=== PATIENT | female | born 1975 | race Caucasian/White ===

== ENCOUNTER 2022-08-11 14:02 | Outpatient (CLI) | payer OTHER, SELFPAY ==
--- NOTE | ~2022-08-11 | XR_ITS ---
EXAMINATION: XR thoracic spine 3V, XR lumbar spine 2-3V DATE: 08/11/2022 14:23 INDICATION: 2 days of mid to lower back pain TECHNIQUE: 1. One AP, lateral and lateral swimmer's views of the thoracic spine were obtained. 2. AP, lateral and coned-down lateral lumbosacral views of the lumbar spine were obtained. COMPARISON: None. FINDINGS: Thoracic spine: Mild thoracic kyphosis. Vertebral body heights are normal. Mild disc height loss at a few levels in t he mid to lower thoracic spine. Visualized portions of the lungs are clear with no pleural effusion o r pneumothorax. Heart size is normal. Adjustable gastric banding procedure with normal phi angle of 4 3 degrees and with reservoir in the anteriorly projecting over the right upper quadrant. Lumbar spine: Alignment is normal. Vertebral body and disc heights are normal. Sacral arches are intact. Mild bilat eral sacroiliac osteoarthritis. Mild facet osteoarthritis in lower lumbar spine. T-shaped IUD project s in expected position over the central pelvis. IMPRESSION: 1. Mild thoracic spondylosis. No acute osseous abnormality. 2. Normal lumbar spine. 3. In expected appearance of an IUD and an adjustable gastric band Reviewed, dictated and finalized at location A. IMPRESSION: 1. Mild thoracic spondylosis. No acute osseous abnormality. 2. Normal lumbar spine. 3. In expected appearance of an IUD and an adjustable gastric band
== END 2022-08-11 14:03 ==
PROVIDERS: PCP Family Medicine; Visit Provider Nurse Practitioner Family
DX: M54.16 Radiculopathy, lumbar region (principal); M47.894 Other spondylosis, thoracic region
CPT/HCPCS: 72072; 72100

== ENCOUNTER 2023-07-31 06:33 | Outpatient (CLI) | payer OTHER, SELFPAY ==
--- NOTE | ~2023-07-31 | MR_ITS ---
MRI of the lumbar spine Clinical History: Radiculopathy Technique: Axial T2-weighted images, and sagittal T1-weighted, T2-weighted, and T2 fat-sat images wer e acquired. Findings: There is no fracture or subluxation of the lumbar spine. Vertebral bodies maintain normal h eight and alignment. No bone marrow signal abnormality seen. At L1-L2, L2-L3, L3-L4, intervertebral discs maintain normal signal and position. There are minimal f acet joint hypertrophic changes at these levels. No spinal canal stenosis or neural foraminal narrowi ng at these levels. At L4-L5, there is minimal disc desiccation with minimal disc bulge. There is moderate facet arthropa thy. No central canal stenosis. Probable mild right neural foraminal narrowing. Left neural foramen p reserved. At L5-S1, there is no disc bulge or herniation. There is moderate facet arthropathy. No central canal stenosis or neural foraminal narrowing. Paravertebral soft tissues are unremarkable. Impression: Minimal degenerative spondylosis, as above. Reviewed, dictated and finalized at location . Impression: Minimal degenerative spondylosis, as above.
== END 2023-07-31 06:34 | disposition home or self-care (01) ==
PROVIDERS: PCP Family Medicine; Visit Provider Nurse Practitioner Family
DX: M54.16 Radiculopathy, lumbar region (principal); M54.30 Sciatica, unspecified side
CPT/HCPCS: 72148

== ENCOUNTER 2023-11-03 08:33 | Outpatient (CLI) | payer OTHER, SELFPAY ==
--- NOTE | ~2023-11-03 | XR_ITS ---
XR hip BI 2V w AP pelvis 11/03/2023 08:56 INDICATION: Right hip pain and SI joint pain for 2 years PROCEDURE: AP pelvis and 2 views each hip COMPARISON: No prior studies for comparison. FINDINGS: Fracture, dislocation or subluxation is not identified. Pelvic rings are intact. Sacroiliac joints are symmetric. The soft tissues appear within normal limits. No foreign bodies are identifie d. There is an IUD present in the pelvis. IMPRESSION: 1: No significant bone or joint abnormality. Reviewed, dictated and finalized at location B.
== END 2023-11-03 08:34 ==
PROVIDERS: PCP Anesthesiology Pain Medicine; Visit Provider Anesthesiology Pain Medicine
DX: M25.551 Pain in right hip (principal); M53.3 Sacrococcygeal disorders, not elsewhere classified
CPT/HCPCS: 73521

== ENCOUNTER 2023-11-10 09:13 | Day surgery (SDC) | payer OTHER, SELFPAY ==
[2023-11-03 14:31] VITALS: BMI 31.4
--- NOTE | ~2023-11-10 | XR_ITS ---
EXAMINATION: XR fluoroscopy no charge DATE: 11/10/2023 11:00 CDT INDICATION: JESUSITA SI JT INJ . TECHNIQUE: 7 fluoroscopic images of the SI joints were obtained during bilateral SI joint injection, performed by Otto Loya MD. I was not present during the procedure. Fluoroscopy exposure time w as 9.8 seconds. Air Kerma 2.67 mGy. COMPARISON: None FINDINGS/IMPRESSION: Fluoroscopic documentation of bilateral SI joint injection. Please refer to the operative note for co mplete procedural details . Reviewed, dictated and finalized at location K.
--- NOTE | 2023-11-10 05:46 | WPDHPUPDATE1 ---
History and Physical Update Update Date/Time: 11/10/23 05:46 History and Physical has been reviewed, including an updated exam of the patient. There are NO changes in the patient's condition. Risks, benefits, and alternatives have been discussed and questions answered. Patient agrees to proceed with procedure.
--- NOTE | 2023-11-10 05:47 | W.PM.PROC2 ---
Procedure Note - Detailed Date of Procedure 11/10/23 Pre-op Diagnosis Bilateral Sacroiliitis, Chronic dorsalgia Post-op Diagnosis Same Procedure Performed Bilateral Sacroiliac Joint Steroid Injection under Fluoroscopic Guidance and with Contrast Control. Surgeon Otto Loya MD Anesthesia Local Description of Procedure INFORMED CONSENT: Risks, benefits and alternatives to the procedure were discussed in detail with the patient who expressed explicit understanding and consent to proceed. Patient was informed verbally and in written form regarding the risks associated with the procedure including the low risk of serious infection, bleeding/bruising, allergic reaction, nerve or organ injury, paralysis, procedural site pain or discomfort, worsening pain and/or mobility, failure to treat and/or disfigurement. The patient expressed explicit understanding and consent to proceed. All materials required for the procedure were available prior to procedure start. Site and side were marked prior to procedure and confirmed in the presence of the patient. PROCEDURE IN DETAIL: The patient was brought to the procedural suite and placed in the prone position. Patient was made comfortable with use of pillows under the head/chest, hips and ankles. Skin overlying the injection site on the affected side(s) was prepared broadly with ChloraPrep applicator and draped in a sterile manner. Aseptic technique was used throughout. The SI joint was identified in the AP view and contralateral oblique angulation with caudal tilt was utilized to optimize visualization of the inferior and medial joint line representing the posterior portion of the joint. Local anesthesia was established by infiltration with approximately 5 mL of 2% lidocaine via a 1-1/2 inch 27-gauge needle. A 22-gauge 3.5 inch Quincke spinal needle was advanced until the needle entered the inferior third of the joint space approximately 1cm cephalad from its most inferior point. In the AP view, 0.5 mL of Omnipaque 300 contrast medium was injected after negative aspiration for CSF, blood or other bodily fluid, showing appropriate intra-articular spread of contrast without evidence of intravascular, perineural or intrathecal placement. A 1.5 mL solution containing 3 mg of betamethasone in 0.5% PF bupivacaine was injected after repeat negative aspiration. Appropriate spread of the injectate was confirmed with washout of previous injected contrast. No parasthesias were elicited. Needle was removed completely intact without difficulty. The same exact procedure was repeated for all remaining levels on the contralateral side, left SI joint, modified as necessary to accommodate for the new target location with identical findings/results and no evidence of complication. Images were saved and documented in the patient chart. Patient's skin was cleansed and sterile bandage applied. The patient tolerated the procedure well. The patient was transported to the recovery area in stable condition where they were observed for an appropriate amount of time prior to discharge, without evidence of complication. The patient was instructed to avoid excessive activity for the next 48 hours, including climbing and frequent use of stairs. Showers only for 48 hours. They were instructed not to drive or operate heavy machinery for 24 hours. They are to monitor for severe headaches, fevers, chills, night sweats, erythema/swelling at the site or any other signs of infection, bleeding/bruising, bowel or bladder changes as well as new pain, weakness or numbness in the upper or lower extremity. Should they notice these changes, they are instructed to call our office immediately or report directly to the nearest Emergency Department if no answer or if after posted office hours. COMPLICATIONS: None COMMENTS: None CONTRAST WASTED: 29mL Omnipaque 300. Complications No immediate complications Condition Stable Disposition Same day [facility] Billing S
[2023-11-10 10:10] VITALS: BMI 31.3
[2023-11-10 10:13] VITALS: BP 110/85; PULSE 87; RESP 16; TEMP 36.6; O2SAT 100
[2023-11-10] MEDS: LIDOCAINE HCL 1% PF INJ 5 ML VIAL 4 ML INFILTRATE (11:08)
[2023-11-10 11:09] VITALS: BP 109/54; PULSE 78; RESP 16; O2SAT 99
[2023-11-10 11:11] VITALS: BP 103/59; PULSE 77; RESP 16; O2SAT 99
[2023-11-10] MEDS: BUPivacaine HCL 0.5% 10 ML AMP 2 ML INFILTRATE (11:13)
[2023-11-10] MEDS: BETAMETHASONE SODIUM PHOSPHATE PF INJ 6 MG/ML VIAL INFILTRATE (11:13)
[2023-11-10 11:18] VITALS: BP 109/76; PULSE 78; RESP 16; O2SAT 100
== END 2023-11-10 11:30 | disposition home or self-care (01) ==
PROVIDERS: PCP Family Medicine; Visit Provider Anesthesiology Pain Medicine
PROC: (CPT 27096; principal; 2023-11-10 10:45)
DX: M46.1 Sacroiliitis, not elsewhere classified (principal); M54.89 Other dorsalgia
CPT/HCPCS: 27096 ×2; 99199; G0260

== ENCOUNTER 2024-01-15 12:30 | Outpatient (RCR) | payer OTHER, SELFPAY ==
--- NOTE | 2023-12-24 14:03 | PTOPEVAL1 ---
Assessment and note entered by Justin Perdomo Evaluation Information Assessment Status Evaluation ICD-10 Condition Codes (PT) M54.16 Onset 04/24/23 Subjective Information Pt. reports that back pain started about 9 month ago. She states that she has hx of on/off back pain. She describes her pain across the low back, but most pain is on the right. She states that she had recent injection into the SI joint, which has helped to relieve her pain. She reports injection took place of 11/10/23. 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 She reports that standing and sitting for too long will increase her pain. She does notice since her injection the pain has become more bearable. She states that prior to her pain, she was doing regular exercise, but has been unable to exercise over the past year due to pain increase. She reports that her goal is to decrease her pain and return to regular exercise. Reported Pain Level Pain Score 2: Self Report Assessment PT Clinical Summary Pt. is a 48 year old female who enters the clinic with lumbar radiculopathy. Pt. has had poor exercise tolerance in recent hx, and note difficulty with lumbar movements in standing. Pt. also presents with increased pain at the lateral right hip in the FADIR and ELIZABET positions indicating possibility of interarticular hip pathology. Given increase in pain with WB activities, recommend an aquatic environment for skilled PT. she currently presents with impaired abdominal strength, impaired flexibility, impaired l.e. strength, mild gait impairments and pain. Continued skilled PT is indicated in order to improve these areas to allow for improve IADL tolerance. Plan of Care Interventions Aquatic Therapy,Electrical Stimulation,Gait Training,Hot Pack/Cold Pack,Manual Therapy,Neuro Re-education,Patient/Caregiver Educati,Therapeutic Activities,Therapeutic Exercise PT Services Indicated Yes Treatment Frequency and 2x/week x 8 visits Duration These treatments will address the objective and functional deficits as defined above. The patient will be advanced safely and appropriately in order for the patient to progress towards his/her prior level of function. Additional exercises will be introduced and as well as a comprehensive home exercise program upon discharge, if needed, ?to ensure carryover of functional gains achieved in the clinic. This treatment plan has been reviewed and agreement upon by the patient.
--- NOTE | 2023-12-24 14:03 | OPREHPOC ---
Outpatient Therapy Plan of Care This is a Multidisciplinary Plan of Care that may contain components documented by all disciplines (PT, OT, and ST.) PT Problem 1 PT Problem #1 Knowledge Deficit PT Goal 1 Goal / Goal Update Pt. will be independent with a HEP addressing core strength and trunk mobility. Target Visit 2 PT Problem 2 PT Problem #2 Pain PT Goal 1 Goal / Goal Update Pt. will provide reports of reduction in pain levels to 2/10 at worst with prolonged sitting and standing. Target Visit 8 PT Problem 3 PT Problem #3 Impaired Functional Mobil PT Goal 1 Goal / Goal Update Pt. will be able to safely lift 10-20# object from floor to waist with safe mechanics for 10 reps Pt. will present with less than 30% limitation on the Oswestry. Target Visit 8 PT Problem 4 PT Problem #4 Impaired Strength PT Goal 1 Goal / Goal Update Pt. will present with good + abdominal strength in order to improve lumbar stability Target Visit 8
--- NOTE | 2024-01-13 08:07 | PCPTNOTE ---
Pt No showed visit on 01/12/24, LM for pt and reminded pt of next visit day and time
--- NOTE | 2024-01-18 16:13 | PCPTNOTE ---
pt did not show for today's appt. Called and left her voice message for next appt.
--- NOTE | 2024-01-22 15:00 | PCPTNOTE ---
Pt no showed visit today, called and left message for next appt which is re-eval on 01-29-24.
--- NOTE | 2024-01-29 14:59 | PCPTNOTE ---
pt did not show for today's reeval.
--- NOTE | 2024-01-29 15:01 | PTOPDC ---
Assessment and note entered by Shira Ruby, PT Discharge Report Assessment Status Discharge - Pt Not Present ICD-10 Condition Codes (PT) M54.16 Onset 04/24/23 Subjective Information pt did not show for today's reeval appt. Assessment PT Clinical Summary Madai has received 4 PT sessions, from Dec 23 to Jan 14. She did not show for 4 appointments. Discharge PT due to not attending. The goals were not addressed. Plan of Care PT Services Indicated No
== END 2024-02-01 10:00 | disposition home or self-care (01) ==
LOC: ANHPT 12:30
PROVIDERS: PCP Family Medicine; Visit Provider Anesthesiology Pain Medicine
DX: R20.2 Paresthesia of skin (principal); M54.17 Radiculopathy, lumbosacral region; M79.18 Myalgia, other site; M47.817 Spondylosis without myelopathy or radiculopathy, lumbosacral region; M54.9 Dorsalgia, unspecified; M46.1 Sacroiliitis, not elsewhere classified; M25.559 Pain in unspecified hip
CPT/HCPCS: 97110; 97113; 97140; 97161; 97530

== ENCOUNTER 2024-05-17 09:32 | Day surgery (SDC) | payer OTHER, SELFPAY ==
[2024-04-28 14:12] VITALS: BMI 30.9
--- NOTE | ~2024-05-17 | XR_ITS ---
EXAMINATION: XR fluoroscopy no charge DATE: 05/17/2024 10:22 INDICATION: Bilateral sacroiliac joint steroid injection TECHNIQUE: 19 fluoroscopic images of the bilateral sacroiliac joints were obtained during procedure p erformed by Dr. Loya. Radiologist was not present for the imaging or procedure. The amount of fluoros copy time used during this procedure was 0.3 minutes. COMPARISON: None. FINDINGS/IMPRESSION: Images demonstrate needles advanced into the left and right sacroiliac joints. See procedure note for further detail. Reviewed, dictated and finalized at location A. CTOR OF INSTRUCTION
--- OUTSIDE RECORDS SUMMARY | 2024-05-17 09:51 | XMS_ITS | Continuity of Care Document ---
Author Organization [facility] Address [address] [facility] [address] [place] [address] Phone Care Team Providers Care Oil Burner Journeyman Name Role Phone Jorge Molina Unavailable Unavailable Procedures Procedure Date Office/outpatient Visit, [facility] Advance Directives Directive Yes / No Effective Date File Name No Information Encounters Encounter Description Practice Location Reason(s) For Visit Diagnoses Date Provider Providers Copied on Encounter Office/outpat ient Visit, [facility], [address], [place], [place], [id number], [place] tel:[phone] [facility] No Information [address] 0 Jesse Patel. [address] [facility] [address], [place], [address], [place]. tel:[phone] Family History Family Member Type Diagnosis Age At Onset No Information Payers Payer name Insurance type Covered libertarian ID Authoriza tiekaterina(s) [facility] Commercial CI [id number] Social History Type Description Quantity Date Captured [...]
[2024-05-17 09:57] VITALS: BP 124/89; PULSE 100; RESP 15; TEMP 36.3; O2SAT 98
--- NOTE | 2024-05-17 10:01 | P.HP_ITS ---
History of Present Illness History of Present Illness Consent: Risks, benefits, and alternatives have been discussed and questions answered. Patient agrees to proceed with procedure. Chief complaint: Sacroiliitis, not elsewhere classified. Narrative: Madai Milligan is a 48 year old female with chronic, recalcitrant and disabling bilateral lumbosacral back pain secondary to SI joint arthropathy, sacroiliitis with failure to respond to aggressive conservative measures including PT, oral and topical analgesics, opioid and nonopioid analgesics, rest, time and activity/behavioral modification over the past 1-2 years who presents for therapeutic steroid injection of the bilateral SI joints under fluoroscopic guidance and with contrast control. Review of Systems Review of Systems: Patient denies any new infectious, allergic, cardiopulmonary, neurologic or constitutional symptoms or changes in activity tolerance or exercise capacity including new or progressive SOB/BOWIE, peripheral edema, productive cough, dysuria, nausea/vomiting, diarrhea, weight change, fevers/chills/night sweats, new or progressive neurologic deficit, cognitive or mood changes since last seen, except as documented in the HPI. All systems reviewed & are unremarkable except as noted in HPI and below PMFSH Past Medical History Medical History Sciatic leg pain Surgical History Surgical History H/O section (~2008) Hx of laparoscopic gastric banding (~2005) Social History Social History (Updated 04/11/24 @ 14:06 by Dolores Estrada MA) Social History: Madai is to Sixto, they have one daughter. 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 Lifelong non- smoker. Smoking status: Never smoker Second hand tobacco smoke exposure: No Alcohol intake: current Drinks per week: 1 Substance use: never Substance use type: does not use Do You Feel Safe in your Home?: Yes Lack of Transportation: No Lack of Food: Never True Current Housing: I Have Housing Concerned About Future Housing: No Difficulty Paying Gas/Electric Bills: No Difficulty Paying for Meds: No Currently Unemployed: No Education: Bachelor's Degree Difficulty w/ Childcare or Family Care: No Living arrangements: with family Additional living arrangements comments: and Daughter Occupation/Education: occupation Gender identity (if verbalized by the patient): Female Sexual Orientation (if Verbalized by the Patient): Straight or Heterosexual Spiritual care concerns: No Meds Home Medications and Allergies Home Medications ?Medication ?Instructions ?Recorded ?Confirmed ?Type multivitamin 1 tablet PO DAILY 08/11/22 05/17/24 History famotidine 20 mg tablet 20 mg PO DAILY 11/03/23 05/17/24 History paroxetine HCl 10 mg tablet 10 mg PO HS 11/03/23 05/17/24 History loratadine 10 mg tablet (Claritin) 10 mg PO DAILY PRN ALLERGIES 11/10/23 05/17/24 History cyclobenzaprine 10 mg tablet 10 mg PO TID PRN Muscle Spasm #60 03/11/24 05/17/24 Rx tabs tramadol 50 mg tablet 50 mg PO Q4-6H #21 tabs 03/22/24 05/17/24 Rx duloxetine 30 mg capsule,delayed 60 mg (2 x 30 mg) .Route QHS 30 04/11/24 05/17/24 Rx release days #60 caps Allergies Allergy/AdvReac Type Severity Reaction Status Date / Time latex Allergy Unknown Rash Verified 05/17/24 09:56 Vital Signs Vital Signs - 24 hr 05/17/24 09:57 Temperature 97.4 F L Pulse Rate 100 Respiratory Rate 15 Blood Pressure 124/89 Pulse Oximetry 98 Oxygen Delivery Room Air Exam Narrative: The patient's physical exam is essentially unchanged from prior examination on 04/11/2024. Specifically, patient demonstrates normal lung capacity, tidal volume and respiratory rate without wheezes, crackles, rales or rubs. Heart rate and rhythm are regular without murmurs, gallops or rubs. No JVD. Pulses 2+ globally without increasing peripheral edema. AAOx3 with no evidence of confusion, intoxication or altered mental state, NC/AT without acute distress or altered consciousness. Speech, cognition, mood, insight and judgment at baseline and within normal limits. Assessment and Plan Assessment and plan (1) Arthropathy of sacroiliac joint: Code(s): M47.818 - Spondylosis without myelopathy or radiculopathy, sacral and sacrococcygeal region Status: Acute (2) Lumbosacral spondylosis: Code(s): M47.817 - Spondylosis without myelopathy or radiculopathy, lumbosacral region Status: Acute (3) Dorsalgia: Code(s): M54.9 - Dorsalgia, unspecified Status: Acute Plan Proceed as planned with therapeutic steroid injection of the bilateral SI joints under fluoroscopic guidance and with contrast control.
--- NOTE | 2024-05-17 10:03 | WPDHPUPDATE1 ---
History and Physical Update Update Date/Time: 05/17/24 10:03 History and Physical has been reviewed, including an updated exam of the patient. There are NO changes in the patient's condition. Risks, benefits, and alternatives have been discussed and questions answered. Patient agrees to proceed with procedure.
--- NOTE | 2024-05-17 10:04 | W.PM.PROC2 ---
Procedure Note - Detailed Date of Procedure 05/17/24 Pre-op Diagnosis Sacroiliitis, not elsewhere classified. Post-op Diagnosis Same Procedure Performed Bilateral Sacroiliac Joint Steroid Injection under Fluoroscopic Guidance and with Contrast Control. Surgeon Otto Loya MD Aquaculture Director None Anesthesia Local Description of Procedure INFORMED CONSENT: Risks, benefits and alternatives to the procedure were discussed in detail with the patient who expressed explicit understanding and consent to proceed. Patient was informed verbally and in written form regarding the risks associated with the procedure including the low risk of serious infection, bleeding/bruising, allergic reaction, nerve or organ injury, paralysis, procedural site pain or discomfort, worsening pain and/or mobility, failure to treat and/or disfigurement. The patient expressed explicit understanding and consent to proceed. All materials required for the procedure were available prior to procedure start. Site and side were marked prior to procedure and confirmed in the presence of the patient. PROCEDURE IN DETAIL: The patient was brought to the procedural suite and placed in the prone position. Patient was made comfortable with use of pillows under the head/chest, hips and ankles. Skin overlying the injection site on the affected side(s) was prepared broadly with ChloraPrep applicator and draped in a sterile manner. Aseptic technique was used throughout. The right SI joint was identified in the AP view and contralateral oblique angulation with caudal tilt was utilized to optimize visualization of the inferior and medial joint line representing the posterior portion of the joint. Local anesthesia was established by infiltration with approximately 5 mL of 2% lidocaine via a 1-1/2 inch 27-gauge needle. A 22-gauge 3.5 inch Quincke spinal needle was advanced until the needle entered the inferior third of the joint space approximately 1cm cephalad from its most inferior point. In the AP view, 0.5 mL of Omnipaque 300 contrast medium was injected after negative aspiration for CSF, blood or other bodily fluid, showing appropriate intra-articular spread of contrast without evidence of intravascular, perineural or intrathecal placement. A 1.5 mL solution containing 3 mg of betamethasone in 0.5% PF bupivacaine was injected after repeat negative aspiration. Appropriate spread of the injectate was confirmed with washout of previous injected contrast. No parasthesias were elicited. Needle was removed completely intact without difficulty. The same exact procedure was repeated for all remaining levels on the contralateral side, left SI joint, modified as necessary to accommodate for the new target location with identical findings/results and no evidence of complication. Images were saved and documented in the patient chart. Patient's skin was cleansed and sterile bandage applied. The patient tolerated the procedure well. The patient was transported to the recovery area in stable condition where they were observed for an appropriate amount of time prior to discharge, without evidence of complication. The patient was instructed to avoid excessive activity for the next 48 hours, including climbing and frequent use of stairs. Showers only for 48 hours. They were instructed not to drive or operate heavy machinery for 24 hours. They are to monitor for severe headaches, fevers, chills, night sweats, erythema/swelling at the site or any other signs of infection, bleeding/bruising, bowel or bladder changes as well as new pain, weakness or numbness in the upper or lower extremity. Should they notice these changes, they are instructed to call our office immediately or report directly to the nearest Emergency Department if no answer or if after posted office hours. COMPLICATIONS: None COMMENTS: None CONTRAST WASTED: 29mL Omnipaque 300. Complications No immediate complications Condition Stable Disposition Same day [facility] Billing Surgery - Charge Forward: Surgery Billing
[2024-05-17 10:13] VITALS: BP 121/78; PULSE 90; RESP 20; O2SAT 96
[2024-05-17] MEDS: BETAMETHASONE SODIUM PHOSPHATE PF INJ 6 MG/ML VIAL INFILTRATE (10:18)
[2024-05-17] MEDS: BUPivacaine HCL 0.5% 10 ML AMP INFILTRATE (10:18)
[2024-05-17 10:19] VITALS: BP 129/83; PULSE 88; RESP 17; O2SAT 96
[2024-05-17] MEDS: LIDOCAINE 1% PF INJ 5 ML VIAL INFILTRATE (10:20)
[2024-05-17 10:28] VITALS: BP 122/88; PULSE 92; RESP 18; O2SAT 99
== END 2024-05-17 10:40 | disposition home or self-care (01) ==
PROVIDERS: PCP Family Medicine; Visit Provider Anesthesiology Pain Medicine
PROC: (CPT 27096; principal; 2024-05-17 11:30)
DX: M46.1 Sacroiliitis, not elsewhere classified (principal)
CPT/HCPCS: 27096; 99199; G0260

== ENCOUNTER 2024-07-05 10:19 | Outpatient (CLI) | payer OTHER, SELFPAY ==
--- OUTSIDE RECORDS SUMMARY | 2024-07-05 11:30 | XMS_ITS | Continuity of Care Document ---
Author Organization [facility] Address [address] [facility] [address] [place] [address] Phone Care Team Providers Care Consumer Insights Specialist Name Role Phone Jorge Molina Unavailable Unavailable Procedures Procedure Date Office/outpatient Visit, [facility] Advance Directives Directive Yes / No Effective Date File Name No Information Encounters Encounter Description Practice Location Reason(s) For Visit Diagnoses Date Provider Providers Copied on Encounter Office/outpat ient Visit, [facility], [address], [place], [place], [id number], [place] tel:[phone] [facility] No Information 201 0 Jesse Patel. [address] [facility] [address], [place], [address], [place]. tel:[phone] Family History Family Member Type Diagnosis Age At Onset No Information Payers Payer name Insurance type Covered democrat ID Authoriza tiekaterina(s) [facility] Commercial CI [id number] Social History Type Description Quantity Date Captured [...]
[2024-07-05 16:03] LABS: Alanine Aminotransferase 17 U/L (6-35); Albumin Level 4.2 g/dL (3.5-5.1); Alkaline Phosphatase 51 U/L (38-126); Anion Gap 7 mmol/L (4-12); Aspartate Amino Transferase 41 U/L (14-36); Bilirubin,Total 0.5 mg/dL (0.2-1.3); Blood Urea Nitrogen 9 mg/dL (7-17); Calcium 8.8 mg/dL (8.4-10.2); Carbon Dioxide 26 mmol/L (22-30); Chloride 105 mmol/L (98-107); Cholesterol 215 mg/dL (0-200); Estimated Glomerular Filt Rate > 60; Glucose 90 mg/dL (65-110); HDL Direct 62 mg/dL; Potassium 4.3 mmol/L (3.4-5.0); Sodium 138 mmol/L (137-145); Triglycerides 78 mg/dL (<150)
[2024-07-05 16:09] LABS: Vitamin D 25 Hydroxy 21.3 ng/mL
[2024-07-05 16:14] LABS: LDL Cholesterol Direct 132 mg/dL
[2024-07-05 17:22] LABS: Basophils Absolute Auto 0.1 K/mm3 (0.0-0.1); Basophils Percent Auto 0.5 % (0.2-1.2); Eosinophils Absolute Auto 0.6 K/mm3 (0-0.3); Eosinophils Percent Auto 6.6 % (0-4.4); Hematocrit 41.2 % (37.0-47.0); Hemoglobin 13.4 g/dL (12.0-15.0); Immature Granulocyte Absolute 0.03 K/mm3 (0.00-0.031); Immature Granulocyte Percent A 0.3 % (0-0.5); Lymphocytes Absolute Auto 2.54 K/mm3 (0.9-3.2); Lymphocytes Percent Auto 27.2 % (18.3-44.2); Mean Corpuscular HGB Conc 32.5 g/dl (32-36); Mean Corpuscular Hemoglobin 31.5 pg (26-34); Mean Corpuscular Volume 96.7 fl (80-100); Mean Platelet Volume 12.9 fl (7.4-10.4); Monocytes Absolute Auto 0.7 K/mm3 (0.1-0.6); Monocytes Percent Auto 7.4 % (2.6-8.5); Neutrophils Absolute Auto 5.4 K/mm3 (1.3-6.7); Platelet Count Result 343 k/mm3 (150-375); Red Blood Count 4.26 M/mm3 (4.2-5.4); Red Cell Distribution Width 13.2 % (11.5-14.5); White Blood Count 9.3 K/mm3 (4.5-10.0)
== END 2024-07-05 10:20 | disposition home or self-care (01) ==
LOC: ANHGOSHLAB 10:20
PROVIDERS: PCP Family Medicine; Visit Provider Nurse Practitioner Family
DX: R63.5 Abnormal weight gain (principal); I10 Essential (primary) hypertension; E78.5 Hyperlipidemia, unspecified; E55.9 Vitamin D deficiency, unspecified
CPT/HCPCS: 36415; 80053; 80061; 82306; 84439; 84443; 85025

== ENCOUNTER 2024-09-05 06:03 | Day surgery (SDC) | payer OTHER, SELFPAY ==
[2024-08-29 12:15] VITALS: BMI 35.2
--- NOTE | ~2024-09-05 | XR_ITS ---
EXAMINATION: XR fluoroscopy no charge DATE: 09/05/2024 7:45 CDT INDICATION: JESUSITA THERAPEUTIC SI JT STEROID INJ . TECHNIQUE: 9 fluoroscopic images of the bilateral SI joints were obtained during bilateral therapeuti c SI joint steroid injection, performed by Otto Loya MD. I was not present during the procedur e. Fluoroscopy exposure time was 43.9 seconds. Air Kerma 14.82 mGy. COMPARISON: 05/17/2024 FINDINGS/IMPRESSION: Fluoroscopic documentation of bilateral therapeutic SI joint steroid injection. Please refer to the operative note for complete procedural details . Reviewed, dictated and finalized at location K.
--- OUTSIDE RECORDS SUMMARY | 2024-09-05 06:41 | XMS_ITS | Continuity of Care Document ---
Author Organization [facility] Address [address] [facility] [address] [place] [address] Phone Care Team Providers Care Licensed Home Inspector Name Role Phone Jorge Molina Unavailable Unavailable Procedures Procedure Date Office/outpatient Visit, [facility] Advance Directives Directive Yes / No Effective Date File Name No Information Encounters Encounter Description Practice Location Reason(s) For Visit Diagnoses Date Provider Providers Copied on Encounter Office/outpat ient Visit, [facility], [address], [place], [place], [id number], [place] tel:[phone] [facility] No Information 201 0 Jesse Patel. [address] [facility] [address], [place], [address], [place]. tel:[phone] Family History Family Member Type Diagnosis Age At Onset No Information Payers Payer name Insurance type Covered republican ID Authoriza tiekaterina(s) [facility] Commercial CI [id number] Social History Type Description Quantity Date Captured [...]
[2024-09-05 07:12] VITALS: BP 121/84; PULSE 80; RESP 16; TEMP 36.4; O2SAT 99
--- NOTE | 2024-09-05 07:17 | WPDHPUPDATE1 ---
History and Physical Update Update Date/Time: 09/05/24 07:17 History and Physical has been reviewed, including an updated exam of the patient. There are NO changes in the patient's condition. Risks, benefits, and alternatives have been discussed and questions answered. Patient agrees to proceed with procedure.
--- NOTE | 2024-09-05 07:18 | P.OP_ITS ---
Procedure Note - Detailed Date of Procedure 09/05/24 Pre-op Diagnosis Sacroiliitis, not elsewhere classified Post-op Diagnosis Same Procedure Performed Bilateral Sacroiliac Joint Steroid Injection under Fluoroscopic Guidance and with Contrast Control. Surgeon Otto Loya MD Chief Wheelage Clerk None Anesthesia Local Description of Procedure INFORMED CONSENT: Risks, benefits and alternatives to the procedure were discussed in detail with the patient who expressed explicit understanding and consent to proceed. Patient was informed verbally and in written form regarding the risks associated with the procedure including the low risk of serious infection, bleeding/bruising, allergic reaction, nerve or organ injury, paralysis, procedural site pain or discomfort, worsening pain and/or mobility, failure to treat and/or disfigurement. The patient expressed explicit understanding and consent to proceed. All materials required for the procedure were available prior to procedure start. Site and side were marked prior to procedure and confirmed in the presence of the patient. PROCEDURE IN DETAIL: The patient was brought to the procedural suite and placed in the prone position. Patient was made comfortable with use of pillows under the head/chest, hips and ankles. Skin overlying the injection site on the affected side(s) was prepared broadly with ChloraPrep applicator and draped in a sterile manner. Aseptic technique was used throughout. The right SI joint was identified in the AP view and contralateral oblique angulation with caudal tilt was utilized to optimize visualization of the inferior and medial joint line representing the posterior portion of the joint. Local anesthesia was established by infiltration with approximately 5 mL of 2% lidocaine via a 1-1/2 inch 27-gauge needle. A 22-gauge 3.5 inch Quincke spinal needle was advanced u ntil the needle entered the inferior third of the joint space approximately 1cm cephalad from its most inferior point. In the AP view, 0.5 mL of Omnipaque 300 contrast medium was injected after negative aspiration for CSF, blood or other bodily fluid, showing appropriate intra-articular spread of contrast without evidence of intravascular, perineural or intrathecal placement. A 1.5 mL solution containing 5 mg of dexamethasone in 0.5% PF bupivacaine was injected after repeat negative aspiration. Appropriate spread of the injectate was confirmed with washout of previous injected contrast. No parasthesias were elicited. Needle was removed completely intact without difficulty. The same exact procedure was repeated for all remaining levels on the contralateral side, left SI joint, modified as necessary to accommodate for the new target location with identical findings/results and no evidence of complication. Images were saved and documented in the patient chart. Patient's skin was cleansed and sterile bandage applied. The patient tolerated the procedure well. The patient was transported to the recovery area in stable condition where they were observed for an appropriate amount of time prior to discharge, without evidence of complication. The patient was instructed to avoid excessive activity for the next 48 hours, including climbing and frequent use of stairs. Showers only for 48 hours. They were instructed not to drive or operate heavy machinery for 24 hours. They are to monitor for severe headaches, fevers, chills, night sweats, erythema/swelling at the site or any other signs of infection, bleeding/bruising, bowel or bladder changes as well as new pain, weakness or numbness in the upper or lower extremity. Should they notice these changes, they are instructed to call our office immediately or report directly to the nearest Emergency Department if no answer or if after posted office hours. COMPLICATIONS: None COMMENTS: None CONTRAST WASTED: 29mL Omnipaque 300. Complications No immediate complications Condition Stable Disposition Same day [facility] Billing Surgery - Charge Forward: Surgery Billing
[2024-09-05 07:51] VITALS: BP 124/72; PULSE 94; RESP 27; O2SAT 100
[2024-09-05 07:57] VITALS: BP 102/69; PULSE 984; RESP 16; O2SAT 100
[2024-09-05] MEDS: dexAMETHasone SOD PHOS INJ 10 MG/ML 1 ML VIAL XX (07:57)
[2024-09-05] MEDS: BUPivacaine HCL 0.5% 10 ML AMP 2 ML INFILTRATE (07:57)
[2024-09-05] MEDS: LIDOCAINE 1% PF INJ 5 ML VIAL INFILTRATE (07:58)
[2024-09-05 08:00] VITALS: BP 122/76; PULSE 92; RESP 15; O2SAT 97
== END 2024-09-05 08:14 | disposition home or self-care (01) ==
PROVIDERS: PCP Nurse Practitioner Family; Visit Provider Anesthesiology Pain Medicine
PROC: (CPT 27096; principal; 2024-09-05 07:50)
DX: M46.1 Sacroiliitis, not elsewhere classified (principal)
CPT/HCPCS: 27096; 99199; G0260; J1100

== ENCOUNTER 2024-10-14 11:55 | Outpatient (CLI) | payer OTHER, SELFPAY ==
--- NOTE | ~2024-10-14 | XR_ITS ---
XR hip RT 2V w AP pelvis 10/14/2024 12:54 Indication: Status post fall. Hip pain. Procedure: AP pelvis and 2 views right hip Comparison: 11/03/2023 Findings: No fracture, subluxation or dislocation. Pelvic rings are intact. Sacral foramen are symmet lobo. No foreign bodies. Impression: 1: No significant bone or joint abnormality. Reviewed, dictated and finalized at location B. Impression: 1: No significant bone or joint abnormality.
== END 2024-10-14 11:56 | disposition home or self-care (01) ==
PROVIDERS: PCP Family Medicine; Visit Provider Family Medicine
DX: M25.561 Pain in right knee (principal); M25.551 Pain in right hip; M25.571 Pain in right ankle and joints of right foot; Z91.81 History of falling
CPT/HCPCS: 73502; 73564

== ENCOUNTER 2024-11-10 12:18 | Outpatient (CLI) | payer OTHER, SELFPAY ==
--- OUTSIDE RECORDS SUMMARY | 2024-11-10 12:21 | XMS_ITS | Continuity of Care Document ---
Author Organization [facility] Address [address] [facility] [address] [place] [address] Phone Care Team Providers Care Boring Machine Operator Vertical Name Role Phone Jorge Molina Unavailable Unavailable Procedures Procedure Date Office/outpatient Visit, [facility] Advance Directives Directive Yes / No Effective Date File Name No Information Encounters Encounter Description Practice Location Reason(s) For Visit Diagnoses Date Provider Providers Copied on Encounter Office/outpat ient Visit, [facility], [address], [place], [place], [id number], [place] tel:[phone] [facility] No Information 201 0 Jesse Patel. [address] [facility] [address], [place], [address], [place]. tel:[phone] Family History Family Member Type Diagnosis Age At Onset No Information Payers Payer name Insurance type Covered alliance party ID Authoriza tiekaterina(s) [facility] Commercial CI [id number] Social History Type Description Quantity Date Captured [...]
[2024-11-10 13:33] LABS: Influenza A QL RT-PCR Negative (Negative); Influenza B QL RT-PCR Negative (Negative); RSV RNA, RT-PCR Negative (Negative); SARS-CoV-2 RNA PCR Negative (Negative)
== END 2024-11-10 12:19 | disposition home or self-care (01) ==
LOC: ANHLAB 12:19
PROVIDERS: PCP Family Medicine; Visit Provider Family Medicine
DX: J06.9 Acute upper respiratory infection, unspecified (principal); Z20.822 Contact with and (suspected) exposure to COVID-19
CPT/HCPCS: 87637

== ENCOUNTER 2024-12-13 05:51 | Day surgery (SDC) | payer OTHER, SELFPAY ==
--- OUTSIDE RECORDS SUMMARY | 2009-09-21 08:30 | XMS_ITS | Continuity of Care Document ---
Author Organization [facility] Address [address] [facility] [address] [place] [address] Phone Care Team Providers Care Policy Specialist Name Role Phone Jorge Molina Unavailable Unavailable Procedures Procedure Date Office/outpatient Visit, [facility] Advance Directives Directive Yes / No Effective Date File Name No Information Encounters Encounter Description Practice Location Reason(s) For Visit Diagnoses Date Provider Providers Copied on Encounter Office/outpat ient Visit, [facility], [address], [place], [place], [id number], [place] tel:[phone] [facility] No Information [address] 0 Jesse Patel. [address] [facility] [address], [place], [address], [place]. tel:[phone] Family History Family Member Type Diagnosis Age At Onset No Information Payers Payer name Insurance type Covered alliance party ID Authoriza tiekaterina(s) [facility] Commercial CI [id number] Social History Type Description Quantity Date Captured Comments Sex Female Smoking Status No Information Chief Complaint And Reason For Visit No Information Reason For Referral Reason For Referral No Information History Of Present Illness Encounter Date Complaint History Of Prese nt Illness No Information Functional Status Date Functional Assessmen t No Information Instructions Date Instruction Additional Infor mation No Information Assessments Type Assessment Date No Information Patient Care Teams Name Effective Dates (start - stop) Status Members No Information
[2024-12-07 10:34] VITALS: BMI 34.4
--- NOTE | ~2024-12-13 | XR_ITS ---
XR fluoroscopy no charge Indication:Bilateral intra-articular steroid injection in the SI joints TECHNIQUE: Fluoroscopy used during Bilateral intra-articular steroid injection in the SI joints performed by [Otto Loya MD] on 12/13/2024. 20 seconds of fluoroscopy time with 8 fluoroscopic images captured. FINDINGS: Correlate with procedure note. IMPRESSION: Fluoroscopy used during Bilateral intra-articular steroid injection in the SI joints. Reviewed, dictated and finalized at location O.
[2024-12-13 06:40] VITALS: BP 107/89; PULSE 79; RESP 16; TEMP 36.6; O2SAT 99
--- NOTE | 2024-12-13 07:28 | WPDHPUPDATE1 ---
History and Physical Update Update Date/Time: 12/13/24 07:28 History and Physical has been reviewed, including an updated exam of the patient. There are NO changes in the patient's condition. Risks, benefits, and alternatives have been discussed and questions answered. Patient agrees to proceed with procedure.
--- NOTE | 2024-12-13 07:29 | P.OP_ITS ---
Procedure Note - Detailed Date of Procedure 12/13/24 Pre-op Diagnosis sacroilitis Post-op Diagnosis Same Procedure Performed Bilateral Sacroiliac Joint Steroid Injection under Fluoroscopic Guidance and with Contrast Control. Surgeon Otto Loya MD Salesforce Administrator None Anesthesia Local Description of Procedure INFORMED CONSENT: Risks, benefits and alternatives to the procedure were discussed in detail with the patient who expressed explicit understanding and consent to proceed. Patient was informed verbally and in written form regarding the risks associated with the procedure including the low risk of serious infection, bleeding/bruising, allergic reaction, nerve or organ injury, paralysis, procedural site pain or discomfort, worsening pain and/or mobility, failure to treat and/or disfigurement. The patient expressed explicit understanding and consent to proceed. All materials required for the procedure were available prior to procedure start. Site and side were marked prior to procedure and confirmed in the presence of the patient. PROCEDURE IN DETAIL: The patient was brought to the procedural suite and placed in the prone position. Patient was made comfortable with use of pillows under the head/chest, hips and ankles. Skin overlying the injection site on the affected side(s) was prepared broadly with ChloraPrep applicator and draped in a sterile manner. Aseptic technique was used throughout. The right SI joint was identified in the AP view and contralateral oblique angulation with caudal tilt was utilized to optimize visualization of the inferior and medial joint line representing the posterior portion of the joint. Local anesthesia was established by infiltration with approximately 5 mL of 2% lidocaine via a 1-1/2 inch 27-gauge needle. A 22-gauge 3.5 inch Quincke spinal needle was advanced until the needle entered the inferior third of the joint space approximately 1cm cephalad from its most inferior point. In the AP view, 0.5 mL of Omnipaque 300 contrast medium was injected after negative aspiration for CSF, blood or other bodily fluid, showing appropriate intra-articular spread of contrast without evidence of intravascular, perineural or intrathecal placement. A 1.5 mL solution containing 5 mg of dexamethasone in 0.5% PF bupivacaine was injected after repeat negative aspiration. Appropriate spread of the injectate was confirmed with washout of previous injected contrast. No parasthesias were elicited. Needle was removed completely intact without difficulty. The same exact procedure was repeated for all remaining levels on the contralateral side, left SI joint, modified as necessary to accommodate for the new target location with identical findings/results and no evidence of complication. Images were saved and documented in the patient chart. Patient's skin was cleansed and sterile bandage applied. The patient tolerated the procedure well. The patient was transported to the recovery area in stable condition where they were observed for an appropriate amount of time prior to discharge, without evidence of complication. The patient was instructed to avoid excessive activity for the next 48 hours, including climbing and frequent use of stairs. Showers only for 48 hours. They were instructed not to drive or operate heavy machinery for 24 hours. They are to monitor for severe headaches, fevers, chills, night sweats, erythema/swelling at the site or any other signs of infection, bleeding/bruising, bowel or bladder changes as well as new pain, weakness or numbness in the upper or lower extremity. Should they notice these changes, they are instructed to call our office immediately or report directly to the nearest Emergency Department if no answer or if after posted office hours. COMPLICATIONS: None COMMENTS: None CONTRAST WASTED: 29mL Omnipaque 300. Complications No immediate complications Condition Stable Disposition Same day [facility] Billing Surgery - Charge Forward: Surgery Billing
[2024-12-13] MEDS: dexAMETHasone SOD PHOS INJ 10 MG/ML 1 ML VIAL IM (07:37)
[2024-12-13 07:38] VITALS: BP 111/69; PULSE 87; RESP 18; O2SAT 96
[2024-12-13 07:45] VITALS: BP 105/63; PULSE 98; RESP 16; O2SAT 96
[2024-12-13 07:51] VITALS: BP 114/91; PULSE 86; RESP 16; O2SAT 98
== END 2024-12-13 08:02 | disposition home or self-care (01) ==
PROVIDERS: PCP Family Medicine; Visit Provider Anesthesiology Pain Medicine
PROC: (CPT 27096; principal; 2024-12-13 07:30)
DX: M46.1 Sacroiliitis, not elsewhere classified (principal)
CPT/HCPCS: 27096; 99199; G0260; J1100

== ENCOUNTER 2025-01-31 07:59 | Outpatient (CLI) | payer OTHER, SELFPAY ==
--- NOTE | ~2025-01-31 | XR_ITS ---
Examination: XR chest 2V Clinical History: Cough, SOB, chest fullness x 8 months Comparison: None Technique: PA and Lateral Findings: Cardiomediastinal silhouette normal size and configuration. Lungs clear. No acute bony abnormality. IMPRESSION: 1. No acute cardiopulmonary findings. Reviewed, dictated and finalized at location R. OR STAFF ACCOUNTANT
== END 2025-01-31 08:00 | disposition home or self-care (01) ==
PROVIDERS: PCP Family Medicine; Visit Provider Nurse Practitioner Family
DX: R05.9 Cough, unspecified (principal); R06.02 Shortness of breath; R07.89 Other chest pain
CPT/HCPCS: 71046

== ENCOUNTER 2025-03-21 06:37 | Day surgery (SDC) | payer OTHER, SELFPAY ==
[2025-03-15 11:16] VITALS: BMI 36.7
--- NOTE | ~2025-03-21 | XR_ITS ---
XR fluoroscopy no charge Indication:bilateral intra-articular steroid injection in the SI joints. TECHNIQUE: Fluoroscopy used during bilateral intra-articular steroid injection in the SI joints. performed by [Otto Loya MD] on 03/21/2025. 54 seconds of fluoroscopy with 7 fluoroscopic images captured. FINDINGS: Correlate with procedure note. IMPRESSION: Fluoroscopy used during bilateral intra-articular steroid injection in the SI joints.. Reviewed, dictated and finalized at location O. OPERATIONS TECHNICAL DIRECTOR
[2025-03-21 07:39] VITALS: BMI 36.3
--- NOTE | 2025-03-21 07:51 | WPDHPUPDATE1 ---
History and Physical Update Update Date/Time: 03/21/25 07:51 History and Physical has been reviewed, including an updated exam of the patient. There are NO changes in the patient's condition. Risks, benefits, and alternatives have been discussed and questions answered. Patient agrees to proceed with procedure.
--- NOTE | 2025-03-21 07:51 | W.PM.PROC2 ---
Procedure Note - Detailed Date of Procedure 03/21/25 Pre-op Diagnosis Sacroilitis Post-op Diagnosis Same Procedure Performed Bilateral Sacroiliac Joint Steroid Injection under Fluoroscopic Guidance and with Contrast Control. Surgeon Otto Loya MD Brazing Machine Tender None Anesthesia Local Description of Procedure INFORMED CONSENT: Risks, benefits and alternatives to the procedure were discussed in detail with the patient who expressed explicit understanding and consent to proceed. Patient was informed verbally and in written form regarding the risks associated with the procedure including the low risk of serious infection, bleeding/bruising, allergic reaction, nerve or organ injury, paralysis, procedural site pain or discomfort, worsening pain and/or mobility, failure to treat and/or disfigurement. The patient expressed explicit understanding and consent to proceed. All materials required for the procedure were available prior to procedure start. Site and side were marked prior to procedure and confirmed in the presence of the patient. PROCEDURE IN DETAIL: The patient was brought to the procedural suite and placed in the prone position. Patient was made comfortable with use of pillows under the head/chest, hips and ankles. Skin overlying the injection site on the affected side(s) was prepared broadly with ChloraPrep applicator and draped in a sterile manner. Aseptic technique was used throughout. The right SI joint was identified in the AP view and contralateral oblique angulation with caudal tilt was utilized to optimize visualization of the inferior and medial joint line representing the posterior portion of the joint. Local anesthesia was established by infiltration with approximately 5 mL of 2% lidocaine via a 1-1/2 inch 27-gauge needle. A 22-gauge 3.5 inch Quincke spinal needle was advanced until the needle entered the inferior third of the joint space approximately 1cm cephalad from its most inferior point. In the AP view, 0.5 mL of Omnipaque 300 contrast medium was injected after negative aspiration for CSF, blood or other bodily fluid, showing appropriate intra-articular spread of contrast without evidence of intravascular, perineural or intrathecal placement. A 1.5 mL solution containing 5 mg of dexamethasone in 0.5% PF bupivacaine was injected after repeat negative aspiration. Appropriate spread of the injectate was confirmed with washout of previous injected contrast. No parasthesias were elicited. Needle was removed completely intact without difficulty. The same exact procedure was repeated for all remaining levels on the contralateral side, left SI joint, modified as necessary to accommodate for the new target location with identical findings/results and no evidence of complication. Images were saved and documented in the patient chart. Patient's skin was cleansed and sterile bandage applied. The patient tolerated the procedure well. The patient was transported to the recovery area in stable condition where they were observed for an appropriate amount of time prior to discharge, without evidence of complication. The patient was instructed to avoid excessive activity for the next 48 hours, including climbing and frequent use of stairs. Showers only for 48 hours. They were instructed not to drive or operate heavy machinery for 24 hours. They are to monitor for severe headaches, fevers, chills, night sweats, erythema/swelling at the site or any other signs of infection, bleeding/bruising, bowel or bladder changes as well as new pain, weakness or numbness in the upper or lower extremity. Should they notice these changes, they are instructed to call our office immediately or report directly to the nearest Emergency Department if no answer or if after posted office hours. COMPLICATIONS: None COMMENTS: None CONTRAST WASTED: 29mL Omnipaque 300. Complications No immediate complications Condition Stable Disposition Same day [facility] Billing Surgery - Charge Forward: Surgery Billing
[2025-03-21 08:15] VITALS: BP 130/63; PULSE 83; RESP 16; O2SAT 97
[2025-03-21] MEDS: LIDOCAINE 1% PF INJ 5 ML VIAL INFILTRATE (08:18)
[2025-03-21] MEDS: BUPivacaine HCL 0.5% 10 ML AMP INFILTRATE (08:18)
[2025-03-21] MEDS: DEXAMETHASONE SODIUM PHOSP/PF 10 MG/ML 1 ML VIAL (08:19)
[2025-03-21 08:20] VITALS: BP 114/55; PULSE 79; RESP 18; O2SAT 100
[2025-03-21 08:26] VITALS: BP 126/86; PULSE 78; RESP 16; O2SAT 100
== END 2025-03-21 08:38 | disposition home or self-care (01) ==
PROVIDERS: PCP Family Medicine; Visit Provider Anesthesiology Pain Medicine
PROC: (CPT 27096; principal; 2025-03-21 08:15)
DX: M46.1 Sacroiliitis, not elsewhere classified (principal)
CPT/HCPCS: 27096 ×2; 99199; G0260